=== PATIENT | female | born 2000 | race Caucasian/White ===

== ENCOUNTER 2025-04-06 16:24 | Emergency (ER) | payer OTHER ==
[2025-04-06 16:44] VITALS: BP 109/79; RESP 18; TEMP 97.8; BMI 45.8
[2025-04-06 17:12] VITALS: PULSE 102
== END 2025-04-06 17:15 | disposition home or self-care (01) ==
LOC: FER 16:24
PROC: 0T2BX0Z Change Drainage Device in Bladder, External Approach (ICD-10-PCS; principal; 2025-04-06)
DX: T83.090A Other mechanical complication of cystostomy catheter, initial encounter (principal)
CPT/HCPCS: 99284-25